=== PATIENT | female | born 1945 | race Caucasian/White ===

== ENCOUNTER → 2017-12-02 14:15 | Outpatient (CLI) | payer MEDICARE, OTHER, SELFPAY | PROVIDERS: PCP Nurse Practitioner; Visit Provider Nurse Practitioner | DX: R30.0 Dysuria (principal) | CPT/HCPCS: 87077; 87086; 87186 ==

== ENCOUNTER 2017-12-24 08:44 | Outpatient (REF) | payer MEDICARE, OTHER, SELFPAY ==
[2017-12-24 09:19] LABS: Abs Immature Grans 0.01 k/cumm (0.0-0.09); Absolute Basophil Count 0.05 k/cumm (0.0-0.2); Absolute Eosinophil Count 0.32 k/cumm (0.0-0.7); Absolute Lymphocyte Count 2.62 k/cumm (1.2-3.4); Absolute Monocyte Count 0.49 k/cumm (0.11-0.7); Absolute Neutrophil Count 2.73 k/cumm (1.2-6.7); Basophils % 0.8; Eosinophils % 5.1; HCT 44.4 % (36.0-46.0); HGB 15.1 g/dL (12.0-15.5); Immature Grans % 0.2; Lymphocytes % 42.1; Mean Corpuscular Hemoglobin 30.9 pg (27.0-33.0); Mean Platelet Volume 10.4 fL (8.0-11.0); Monocytes % 7.9; Neutrophils % 43.9; Platelet Count 323 x1000/uL (130-400); RBC 4.88 m/cumm (4.00-5.20); RBC Distribution Width 12.2 % (11.7-14.6); White Blood Cell Count 6.22 k/cumm (4.4-10.8)
[2017-12-24 10:51] LABS: ALT 24 U/L (12-78); AST 22 U/L (15-37); Albumin 3.9 g/dL (3.4-5.0); Alkaline Phosphatase 88 U/L (46-116); Anion Gap 7.2 mmol/L (3-11); BUN 11 mg/dL (7-18); Bilirubin, Total 0.4 mg/dL (0.2-1.0); CO2 31.8 mmol/L (21.0-32.0); Calcium 9.4 mg/dL (8.5-10.1); Chloride 101 mmol/L (98-107); Cholesterol 155 mg/dL (50-200); Glucose 98 mg/dL (70-100); HDL Cholesterol 64 mg/dL (40-60); LDL CHOLESTEROL 84 mg/dL (<100); Potassium 4.6 mmol/L (3.5-5.1); Sodium 140 mmol/L (136-145); TSH (W/Ref FT4) 0.06 uIU/mL (0.358-3.74); Total Protein 7.5 g/dL (6.4-8.2); Triglyceride 60 mg/dL (30-150)
[2017-12-24 11:12] LABS: FREE T4 1.28 ng/dL (0.76-1.46)
== END 2017-12-24 09:04 ==
LOC: LBN 08:44
PROVIDERS: PCP Nurse Practitioner; Visit Provider Nurse Practitioner
DX: R30.0 Dysuria (principal); I10 Essential (primary) hypertension; E78.5 Hyperlipidemia, unspecified; E03.9 Hypothyroidism, unspecified
CPT/HCPCS: 80053; 80061; 83721; 87077; 84439; 84443; 85025; 87086; 87186

== ENCOUNTER 2018-01-06 12:23 | Outpatient (REF) | payer MEDICARE, OTHER, SELFPAY | END 2018-01-06 12:43 | LOC: LBN 12:23 | PROVIDERS: PCP Nurse Practitioner; Visit Provider Nurse Practitioner Adult Health | DX: N39.0 Urinary tract infection, site not specified (principal); Z22.322 Carrier or suspected carrier of Methicillin resistant Staphylococcus aureus | CPT/HCPCS: 87077; 87086 ==

== ENCOUNTER 2018-01-23 15:02 | Outpatient (REF) | payer MEDICARE, OTHER, SELFPAY | END 2018-01-23 15:22 | LOC: LBN 15:02 | PROVIDERS: PCP Nurse Practitioner; Visit Provider Nurse Practitioner Family | DX: N39.0 Urinary tract infection, site not specified (principal) | CPT/HCPCS: 87086 ==

== ENCOUNTER 2018-02-24 10:01 | Outpatient (REF) | payer MEDICARE, OTHER, SELFPAY | END 2018-02-24 10:21 | LOC: LBN 10:01 | PROVIDERS: PCP Nurse Practitioner; Visit Provider Nurse Practitioner Adult Health | DX: R35.0 Frequency of micturition (principal); R30.0 Dysuria | CPT/HCPCS: 87077; 87086; 87186 ==

== ENCOUNTER 2018-08-28 09:28 | Outpatient (CLI) | payer MEDICARE, OTHER, SELFPAY ==
[2018-08-28 10:42] LABS: Glucose 99 mg/dL (70-100); TSH (W/Ref FT4) 0.13 uIU/mL (0.358-3.74)
== END 2018-08-28 09:48 ==
PROVIDERS: PCP Nurse Practitioner Adult Health; Visit Provider Nurse Practitioner Adult Health
DX: E03.9 Hypothyroidism, unspecified (principal); I10 Essential (primary) hypertension; R35.0 Frequency of micturition
CPT/HCPCS: 36415; 82947; 84439; 84443

== ENCOUNTER 2018-09-20 19:08 | Emergency (ER) | payer MEDICARE, OTHER, SELFPAY ==
[2018-09-20 19:15] VITALS: BP 160/96; PULSE 100; RESP 16; TEMP 36.9; O2SAT 95
--- NOTE | 2018-09-20 19:40 | DI.CT_ITS ---
SYMPTOM/DIAGNOSIS: LLQ PAIN, NAUSEA, DIARRHEA, H/O DIVERTICULITIS ABDOMEN AND PELVIC CT: CT examination of the abdomen and pelvis was performed with a bolus infusion of 100 cc's of Omnipaque 350. Images obtained through the lung bases are unremarkable. Liver and spleen appear normal. Gallbladder has been surgically removed. Common bile duct is mildly distended at about 14 mm. This is an indeterminate finding in this age group post cholecystectomy. If clinically indicated, additional evaluation with MRCP could be considered. Pancreas is unremarkable. Abdominal aorta is of normal diameter and no major vascular abnormality is seen. No significant abdominal wall hernia is seen. No significant abdominal or pelvic adenopathy is seen. Adrenals and kidneys are unremarkable except for presumed multiple small bilateral renal cysts. Appendix is normal. There is an area of wall thickening of the junction of the descending and sigmoid colon with marked pericolonic fat edema. No gross abscess identified although intramural abscess is not excluded. No evidence of perforation. The findings are consistent with diverticulitis. Other etiologies including perforated carcinoma not absolutely excluded. CONCLUSION: Findings consistent with severe diverticulitis of junction of descending colon and sigmoid colon. Intramural abscess not excluded. No gross perforation or extramural abscess seen. Colonoscopic follow up recommended to exclude neoplastic disease.
[2018-09-20 19:58] LABS: Lactate-non-spesis 0.7 mmol/l (0.6-1.4)
[2018-09-20 20:04] LABS: Abs Immature Grans 0.02 k/cumm (0.0-0.09); Absolute Basophil Count 0.01 k/cumm (0.0-0.2); Absolute Eosinophil Count 0.17 k/cumm (0.0-0.7); Absolute Lymphocyte Count 2.33 k/cumm (1.2-3.4); Absolute Monocyte Count 0.95 k/cumm (0.11-0.7); Basophils % 0.1; Eosinophils % 1.5; HCT 40.9 % (36.0-46.0); HGB 14.3 g/dL (12.0-15.5); Immature Grans % 0.2; Lymphocytes % 20.5; Mean Corpuscular Hemoglobin 31.8 pg (27.0-33.0); Mean Corpuscular Volume 90.9 fL (80-95); Mean Platelet Volume 10.4 fL (8.0-11.0); Monocytes % 8.3; Neutrophils % 69.4; Platelet Count 326 x1000/uL (130-400); White Blood Cell Count 11.39 k/cumm (4.4-10.8)
[2018-09-20 20:20] LABS: ALT 21 U/L (12-78); AST 17 U/L (15-37); Albumin 3.7 g/dL (3.4-5.0); Alkaline Phosphatase 82 U/L (46-116); Anion Gap 11.1 mmol/L (3-11); BUN 7 mg/dL (7-18); Bilirubin, Total 0.5 mg/dL (0.2-1.0); CO2 26.9 mmol/L (21.0-32.0); CREATININE 0.56 mg/dL (0.55-1.02); Calcium 9.2 mg/dL (8.5-10.1); Chloride 100 mmol/L (98-107); Glucose 102 mg/dL (70-100); Magnesium 1.6 mg/dL (1.8-2.4); Sodium 138 mmol/L (136-145); Total Protein 7.8 g/dL (6.4-8.2)
--- NOTE | 2018-09-20 20:29 | W.ED.GENAD ---
Discharge Plan Disposition Patient Disposition: HOME Discharge Details Chief Complaint: Abd Prob Clinical Impression: Diverticulitis, Hypokalemia, Hypomagnesuria Primary Care Provider: Natalya Rodrigez ED Provider: Demetrius Matute Home Meds and New Rx's Prescriptions: New amoxicillin-pot clavulanate [Augmentin] 875-125 mg tablet 1 tab PO BID 7 Days Qty: 14 RF: 0 potassium chloride 20 mEq tablet extended release 20 meq PO DAILY Qty: 30 RF: 0 Continued benazepril 10 mg tablet 10 mg PO DAILY Qty: 90 RF: 3 aspirin [Aspir-81] 81 MG tablet,delayed release (DR/EC) 81 mg PO DAILY RF: 0 multivitamin [Multi-Day] 1 EACH tablet 1 ea PO DAILY RF: 0 cholecalciferol (vitamin D3) [Vitamin D3] 2,000 UNIT capsule 2,000 unit PO DAILY RF: 0 glucosamine sulfate 2KCl 1,000 MG tablet 1,000 mg PO DAILY RF: 0 omeprazole 20 MG capsule,delayed release(DR/EC) 20 mg PO DAILY Qty: 90 RF: 3 simvastatin 20 MG tablet 20 mg PO DAILY Qty: 90 RF: 3 benazepril 20 mg tablet 20 mg PO DAILY Qty: 90 RF: 3 chlorthalidone 25 mg tablet 25 mg PO DAILY Qty: 90 RF: 3 levothyroxine 150 mcg tablet 150 mcg PO DAILY Qty: 90 RF: 3 Discharge Instructions Instructions: Diverticulitis (ED), Hypokalemia (ED) Additional Instructions: Your work-up in the emergency department today has found you to have acute diverticulitis of the lower colon. Your blood work demonstrated low levels of potassium and magnesium. You were given supplementation for both of these in the emergency department. I have started you on antibiotics for your diverticulitis along with potassium supplementation. If you develop severe pain, vomiting, fevers despite antibiotic use you must return to the emergency department for repeat evaluation. Follow-up with your primary care provider regarding your low potassium as this may be related to your diuretic use. Referrals: Natalya Rodrigez, REHABILITATION MANAGER [Primary Care Provider] - 1 week Medical Decision Making This is a nontoxic-appearing 73-year-old female with left lower quadrant pain consistent with previous diverticulitis flares. Her CT today confirms acute diverticulitis without evidence of abscess or perforation. She has a slightly elevated white count however normal lactate. Her chemistry panel did demonstrate a hypokalemia at 2.9 along with a slight hypo-mag at 1.6. She does take chlorthalidone; This along with her recent diarrhea is most likely is what has contributed to her electrolyte imbalances. Potassium 40 mEq p.o. along with 10 mEq IV given. Magnesium 400 mg p.o. given. No EKG changes associated with her hypokalemia. Will redraw chemistries after supplementation. No indication for hospitalization at this time. Will proceed with Augmentin for outpatient antibiotic therapy. Lab Data Most recent lab results Calcium 9.2 mg/dL (8.5-10.1) 09/20/18 19:55 Magnesium 1.6 mg/dL (1.8-2.4) L 09/20/18 19:55 ECG Data Interpretation: Normal sinus rhythm. Negative for STEMI. QTc measuring at 475. HPI General Date/Time Provider Initiated Documentation: 09/20/18 19:17. HPI Narrative: Patient is a 73-year-old female with a significant past medical history of diverticulitis, hypertension, hypothyroidism who presents to the emergency department with left lower quadrant abdominal pain and diarrhea x24 hours. She reports chills and sweats. No fever reported. She denies any urinary symptoms. No bloody stools. Her last bout of diverticulitis was over a year ago. Related Data Home Medications Medication Instructions Recorded Confirmed aspirin [Aspir-81] 81 mg PO DAILY tab-cap 07/03/12 09/20/18 multivitamin [Multi-Day] 1 ea PO DAILY 07/09/14 09/20/18 cholecalciferol (vitamin D3) 2,000 unit PO DAILY 07/31/16 09/20/18 [Vitamin D3] glucosamine sulfate 2KCl 1,000 mg PO DAILY 10/07/17 09/20/18 omeprazole 20 mg PO DAILY #90 tab-cap 11/07/17 09/20/18 simvastatin 20 mg PO DAILY #90 tab-cap 11/18/17 09/20/18 benazepril 20 mg tablet 20 mg PO DAILY #90 tab 12/26/17 09/20/18 benazepril 10 mg tablet 10 mg PO DAILY #90 tab 01/06/18 09/20/18 chlorthalidone 25 mg tablet 25 mg PO DAILY #90 tab-cap 02/10/18 09/20/18 levothyroxine 150 mcg tablet 150 mcg PO DAILY #90 tab-cap 08/28/18 09/20/18 amoxicillin-pot clavulanate 1 tab PO BID 7 Days #14 tab 09/20/18 [Augmentin] potassium chloride 20 meq PO DAILY #30 tab 09/20/18 Previous Rx's Medication Instructions Recorded omeprazole 20 mg PO DAILY #90 tab-cap 11/07/17 simvastatin 20 mg PO DAILY #90 tab-cap 11/18/17 benazepril 20 mg tablet 20 mg PO DAILY #90 tab 12/26/17 benazepril 10 mg tablet 10 mg PO DAILY #90 tab 01/06/18 chlorthalidone 25 mg tablet 25 mg PO DAILY #90 tab-cap 02/10/18 levothyroxine 150 mcg tablet 150 mcg PO DAILY #90 tab-cap 08/28/18 amoxicillin-pot clavulanate 1 tab PO BID 7 Days #14 tab 09/20/18 [Augmentin] potassium chloride 20 meq PO DAILY #30 tab 09/20/18 Allergies Allergy/AdvReac Type Severity Reaction Status Date / Time No Known Allergies Allergy Verified 09/20/18 21:56 General Stated Complaint: Abd Prob MERARY: 3 Review of Systems Constitutional Denies anorexia, Denies body ache(s), Reports chills, Denies fatigue, Denies fever(s), Denies night sweats and Denies weakness ENT Denies sore throat Cardiovascular Denies chest pain, Denies edema, Denies palpitations and Denies dyspnea Respiratory Denies cough, Denies dyspnea and Denies wheezing Gastrointestinal Reports abdominal pain, Denies melena, Reports change in bowel habits, Denies constipation, Reports diarrhea, Reports loose stools, Reports nausea and Denies vomiting Genitourinary Denies hematuria, Denies dysuria and Denies flank pain Musculoskeletal Denies myalgias, Denies deformity and Denies numbness Integumentary/Breasts Denies rash Neurologic Denies numbness and Denies weakness Endocrine Denies fatigue and Denies palpitations Hematologic/Lymphatic Denies easy bleeding and Denies easy bruising Allergic/Immunologic Denies wheezing [facility] Medical History Asthma (Inactive 06/10/13) Asthma Essential hypertension Hearing loss Hypothyroidism Surgical History History of hysterectomy (Resolved) Prolapse of bladder (Resolved) Colonoscopy - IV Sedation (01/09/13) Colonoscopy - MAC (08/30/17) Family History Mother No problems noted. Father Heart disease Social History Smoking/Tobacco Use Status: Former Tobacco Use Drug use: Never Exam Const General: cooperative and healthy appearing Nutritional Appearance: average body habitus Orientation: alert and awake HENMT Head: normal to inspection Ears: hearing grossly normal bilaterally General nose exam: external nose normal Face and sinus: normal facial exam Eyes General: appearance normal, both eyes and all related structures Neck Neck: normal visual inspection, full ROM and no lymphadenopathy Chest Chest: normal inspection of the chest Breast inspection: normal inspection of the breasts Resp Effort & Inspection: normal respiratory effort and able to speak in complete sentences Auscultation: clear to auscultation bilaterally and abnormal I/E ratio Cardio Jugular venous pressure: no JVD Palpation: normal PMI Rate: regular rate Rhythm: regular rhythm Heart Sounds: S1 normal and S2 normal Pulses: normal peripheral pulses GI Inspection: normal to inspection Palpation: soft, no guarding and tender in the LLQ Back/Spine/Pelvis Back: no CVA tenderness Thoracic/Lumbar Spine: thoracic and lumbar spine normal to inspection Skin General skin exam: no rashes or lesions noted Neuro General: alert and awake Extrem General: normal to inspection Course Vital Signs Temperature 36.9 C 09/20/18 19:15 Pulse 100 H 09/20/18 19:15 Respiratory Rate 16 09/20/18 19:15 Blood Pressure 160/96 H 09/20/18 19:15 Pulse Oximetry 95 09/20/18 19:15 Temperature 36.9 C 09/20/18 19:15 Temperature Source Temporal Artery Scan 09/20/18 19:15 Pulse 100 H 09/20/18 19:15 Respiratory Rate 16 09/20/18 19:15 Blood Pressure 160/96 H 09/20/18 19:15 Blood Pressure Position Supine 09/20/18 19:15 Pulse Oximetry 95 09/20/18 19:15 Oxygen Delivery Method Room Air 09/20/18 19:15 Oxygen Flow Rate 0 09/20/18 19:15 Pain Level 7 09/20/18 19:31 Lab/Test Results Lab/Test Results: Laboratory Tests Range/Units 09/20/18 09/20/18 19:55 19:55 WBC (4.4-10.8) k/cumm 11.39 H RBC (4.00-5.20) m/cumm 4.50 Hgb (12.0-15.5) g/dL 14.3 Hct (36.0-46.0) % 40.9 MCV (80-95) fL 90.9 MCH (27.0-33.0) pg 31.8 MCHC (32.0-36.0) g/dL 35.0 RDW (11.7-14.6) % 12.0 Plt Count (130-400) x1000/uL 326 MPV (8.0-11.0) fL 10.4 Immature Gran % 0.2 Neutrophils % 69.4 Lymphocytes % 20.5 Monocytes % 8.3 Eosinophils % 1.5 Basophils % 0.1 Absolute Neutrophils (1.2-6.7) k/cumm 7.90 H Absolute Lymphocytes (1.2-3.4) k/cumm 2.33 Absolute Monocytes (0.11-0.7) k/cumm 0.95 H Absolute Eosinophils (0.0-0.7) k/cumm 0.17 Absolute Basophils (0.0-0.2) k/cumm 0.01 Lactate (0.6-1.4) mmol/l 0.7
[2018-09-20 20:42] LABS: Potassium 2.9 mmol/L (3.5-5.1); Troponin I < 0.02 ng/mL (0.00-0.06)
[2018-09-20] MEDS: Magnesium Oxide 400 MG TAB PO (20:59)
[2018-09-20] MEDS: Potassium Chloride 20 MEQ TABCR 40 MEQ PO (20:59)
[2018-09-20] MEDS: POTASSIUM CHLORIDE 10 MEQ/100 ML BAG 100 MEQ IVPB (20:59)
[2018-09-20] MEDS: Normal Saline 500 ML 1000 ML IV (21:16)
[2018-09-20] MEDS: Omnipaque 350 MG/ML 100 ML BTL IJ (21:21)
[2018-09-20 21:29] VITALS: BP 180/72; PULSE 90; RESP 16; TEMP 36.7; O2SAT 95
--- NOTE | 2018-09-20 22:00 | DI.VRAD_ITS ---
EXAM: CT Abdomen and Pelvis With Contrast EXAM DATE/TIME: 09/20/2018 7:42 PM CLINICAL HISTORY: 73 years old, female; Signs and symptoms; Patient HX: HX of diverticulitis, llq pain, nausea, diarrhea TECHNIQUE: Imaging protocol: Axial computed tomography images of the abdomen and pelvis with intravenous contrast. Coronal and sagittal reformatted images were created and reviewed. COMPARISON: No relevant prior studies available. FINDINGS: Mediastinum: Small hiatal hernia. ABDOMEN: Liver: No mass. Gallbladder and bile ducts: Status post cholecystectomy. Prominent common bile duct. Pancreas: No ductal dilation. Spleen: No splenomegaly. Adrenals: No mass. Kidneys and ureters: Probable tiny 3 mm cyst in the right kidney. Probable 8 mm cyst in the left kidney. Stomach and bowel: Diverticula and wall thickening involving a segment of the sigmoid colon, with surrounding inflammation, compatible with moderate acute diverticulitis. No definite evidence of abscess. Appendix: No evidence of appendicitis. PELVIS: Bladder: Punctate gas is seen in the urinary bladder. Reproductive: Status post hysterectomy. ABDOMEN and PELVIS: Intraperitoneal space: Small amount of free fluid within the pelvis is likely reactive. Bones/joints: Bony structures show scattered degenerative disease of the visualized spine. Soft tissues: Unremarkable. Vasculature: Atherosclerotic disease. Lymph nodes: No enlarged lymph nodes. IMPRESSION: 1. Diverticula and wall thickening involving a segment of the sigmoid colon, with surrounding inflammation, compatible with moderate acute diverticulitis. No definite evidence of abscess. 2. Atherosclerotic disease. 3. Small hiatal hernia. 4. Small amount of free fluid within the pelvis is likely reactive. Dictated and Authenticated by: Pasha Cartwright MD. Ordering:ZABRINA Romo MD
[2018-09-20 22:29] LABS: Potassium 3.3 mmol/L (3.5-5.1)
[2018-09-20] MEDS: Amoxicillin 875/Clav. 125 TAB PO (23:04)
== END 2018-09-20 22:39 | disposition home or self-care (01) ==
PROVIDERS: Emergency Provider Physician Assistant; PCP Nurse Practitioner Adult Health
DX: K57.30 Diverticulosis of large intestine without perforation or abscess without bleeding (principal); E87.6 Hypokalemia; E83.42 Hypomagnesemia
CPT/HCPCS: 36415; 80053; 93005; 96361; 96365; 99285; 74177; 83605; 83735; 84132; 84484; 85025; 93010; J3480; J3490

== ENCOUNTER 2018-10-03 11:14 | Outpatient (CLI) | payer MEDICARE, OTHER, SELFPAY ==
[2018-10-03 13:05] LABS: Magnesium 1.5 mg/dL (1.8-2.4); Potassium 5.2 mmol/L (3.5-5.1)
== END 2018-10-03 11:34 ==
PROVIDERS: PCP Nurse Practitioner Adult Health; Visit Provider Nurse Practitioner
DX: E83.42 Hypomagnesemia (principal); E87.6 Hypokalemia
CPT/HCPCS: 36415; 83735; 84132

== ENCOUNTER 2018-10-17 15:43 | Outpatient (REF) | payer MEDICARE, OTHER, SELFPAY | END 2018-10-17 16:03 | LOC: LBN 15:43 | PROVIDERS: PCP Nurse Practitioner Adult Health; Visit Provider Nurse Practitioner Adult Health | DX: R30.0 Dysuria (principal) | CPT/HCPCS: 87086 ==

== ENCOUNTER 2018-10-22 11:38 | Outpatient (CLI) | payer MEDICARE, OTHER, SELFPAY ==
[2018-10-22 13:00] LABS: Magnesium 1.5 mg/dL (1.8-2.4); Potassium 4.3 mmol/L (3.5-5.1)
== END 2018-10-22 11:58 ==
PROVIDERS: Nurse Practitioner; PCP Nurse Practitioner Adult Health; Visit Provider Nurse Practitioner Adult Health
DX: E83.42 Hypomagnesemia (principal); E87.6 Hypokalemia
CPT/HCPCS: 83735; 84132

== ENCOUNTER 2018-12-19 15:11 | Outpatient (REF) | payer MEDICARE, OTHER, SELFPAY ==
[2018-12-19 18:59] LABS: Bilirubin Negative (Negative); Blood Trace-intact (Negative); Clarity Cloudy (Clear); Glucose Negative (Negative); Ketones Negative (Negative); Leukocyte Esterase Moderate (Negative); Nitrite Positive (Negative); Specific Gravity 1.015 (1.005-1.025); Urobilinogen 0.2 EU/dL (Up TO 0.2); pH 7.5 (5-8)
[2018-12-19 19:12] LABS: Bacteria Packed HPF (Negative); C & S Indicated? Yes; Casts Negative LPF (Negative); Crystals Negative HPF (Negative); Epithelial Cells Negative HPF (Negative); Mucus Negative (Negative); Other Cells Mod Transitional (Negative); WBC >50 HPF (0-5)
== END 2018-12-19 15:31 ==
LOC: LBN 15:11
PROVIDERS: PCP Nurse Practitioner Adult Health; Visit Provider Nurse Practitioner Adult Health
DX: R30.0 Dysuria (principal)
CPT/HCPCS: 87077; 81003; 81015; 87086; 87186

== ENCOUNTER 2019-06-22 13:24 | Outpatient (CLI) | payer MEDICARE, OTHER, SELFPAY ==
--- NOTE | 2019-06-22 11:30 | DI.RAD_ITS ---
EXAM: XR CHEST 2V PA LATERAL INDICATION: r/o acute process R05 COUGH, R50.9 FEVER, R09.89. COMPARISON: No exams were available for comparison TECHNIQUE: 2D digital imaging was performed. FINDINGS: Heart size is normal. The aorta is normal in diameter and mildly tortuous. The lungs appear clear. No infiltrate, effusion or pulmonary edema is seen. There are no thoracic compression fractures. IMPRESSION: No acute abnormality. DATA REPOSITORY: RADIATION DOSE DELIVERED:
== END 2019-06-22 13:44 ==
PROVIDERS: PCP Nurse Practitioner Adult Health; Visit Provider Nurse Practitioner Adult Health
DX: R05 Cough (principal); R50.9 Fever, unspecified; R09.89 Other specified symptoms and signs involving the circulatory and respiratory systems
CPT/HCPCS: 71046

== ENCOUNTER 2019-11-26 02:22 | Outpatient (CLI) | payer MEDICARE, OTHER, SELFPAY ==
[2019-11-26 11:03] LABS: Anion Gap 8.3 mmol/L (3-11); BUN 11 mg/dL (7-18); CO2 30.7 mmol/L (21.0-32.0); CREATININE 0.62 mg/dL (0.55-1.02); Calcium 9.5 mg/dL (8.5-10.1); Chloride 102 mmol/L (98-107); Glucose 104 mg/dL (74-106); Magnesium 1.7 mg/dL (1.8-2.4); Sodium 141 mmol/L (136-145); TSH (W/Ref FT4) 0.04 uIU/mL (0.36-3.74)
[2019-11-26 11:19] LABS: FREE T4 1.47 ng/dL (0.76-1.46)
== END 2019-11-26 02:42 ==
PROVIDERS: PCP Nurse Practitioner Adult Health; Visit Provider Nurse Practitioner Adult Health
DX: E03.9 Hypothyroidism, unspecified (principal); I10 Essential (primary) hypertension; E83.42 Hypomagnesemia
CPT/HCPCS: 36415; 80048; 83735; 84439; 84443

== ENCOUNTER 2020-02-01 01:26 | Outpatient (CLI) | payer MEDICARE, OTHER, SELFPAY ==
[2020-02-01 14:37] LABS: Anion Gap 8.4 mmol/L (3-11); BUN 13 mg/dL (7-18); CO2 31.6 mmol/L (21.0-32.0); CREATININE 0.74 mg/dL (0.55-1.02); Calcium 9.6 mg/dL (8.5-10.1); Calculated LDL 68 mg/dL (<100); Chloride 98 mmol/L (98-107); Cholesterol 143 mg/dL (<200); Glucose 97 mg/dL (74-106); HDL Cholesterol 57 mg/dL (40-60); Magnesium 1.7 mg/dL (1.8-2.4); Potassium 4.8 mmol/L (3.5-5.1); Sodium 138 mmol/L (136-145); TSH (W/Ref FT4) 0.13 uIU/mL (0.36-3.74); Triglyceride 91 mg/dL (<150)
[2020-02-01 15:16] LABS: FREE T4 1.54 ng/dL (0.76-1.46)
== END 2020-02-01 01:46 ==
PROVIDERS: PCP Nurse Practitioner Adult Health; Visit Provider Nurse Practitioner Adult Health
DX: I10 Essential (primary) hypertension (principal); E78.5 Hyperlipidemia, unspecified; E03.9 Hypothyroidism, unspecified; E83.42 Hypomagnesemia; R94.6 Abnormal results of thyroid function studies
CPT/HCPCS: 36415; 80048; 80061; 83735; 84439; 84443

== ENCOUNTER 2020-08-15 04:15 | Outpatient (CLI) | payer MEDICARE, OTHER, SELFPAY ==
[2020-08-15 12:08] LABS: TSH (W/Ref FT4) 0.18 uIU/mL (0.36-3.74)
[2020-08-15 12:25] LABS: FREE T4 1.31 ng/dL (0.76-1.46)
== END 2020-08-15 04:16 | disposition home or self-care (01) ==
LOC: LBO 04:15
PROVIDERS: PCP Nurse Practitioner Adult Health; Visit Provider Nurse Practitioner Adult Health
DX: E03.9 Hypothyroidism, unspecified (principal)
CPT/HCPCS: 36415; 84439; 84443

== ENCOUNTER 2020-08-22 01:13 | Outpatient (CLI) | payer MEDICARE, OTHER, SELFPAY ==
--- NOTE | 2020-08-22 07:18 | DI.MAMMO_ITS ---
Exam(s) MAMMO SCREENING EXAM: MAMMO SCREENING CLINICAL HISTORY: screening,Z12.39 TECHNIQUE: Bilateral full field digital CC and MLO mammographic images were obtained with 3D tomosyn thesis and utilizing computer aided detection (CAD). COMPARISON: Available for comparison. FINDINGS: Masses/Architectural Distortion: None seen. Microcalcifications: No suspicious pleomorphic-type are seen. Skin Thickening/Nipple Retraction: None. IMPRESSION: 1. No significant interval change with no specific features of malignancy noted. 2. Unless there is more urgent need, screening mammography is recommended, as per [employer] guidelines. BI-RADS Category 1 - Negative Breast Density - Category B - Scattered areas of fibroglandular density Breast density category C or D implies that the patient has dense breast tissue. Dense breast tissue is very common and is not abnormal but dense breast tissue can make it harder to find cancer on a ma mmogram. Also, dense breast tissue may increase their breast cancer risk. This information about the result of the mammogram report was provided to the patient to raise their awareness. Use this report when you speak with the patient about their risks for breast cancer, which includes their family hist ory. At that time, you may recommend for more screening tests (Ultrasound or MRI) as they might be us eful based on their risk. A negative radiographic report should not delay biopsy if a dominant or clinically suspicious mass is present. Up to ten percent of cancers are not identified on mammography. A negative report may reinforce clinical impression. Adenosis and dense breasts may obscure an underlying neoplasm. False positive reports average 6 to 10%. Patient will receive a letter notifying them of these results.
== END 2020-08-22 01:33 ==
PROVIDERS: PCP Nurse Practitioner Adult Health; Visit Provider Nurse Practitioner Adult Health
DX: Z12.31 Encounter for screening mammogram for malignant neoplasm of breast (principal)
CPT/HCPCS: 77063; 77067

== ENCOUNTER 2021-02-17 03:37 | Outpatient (CLI) | payer MEDICARE, OTHER, SELFPAY ==
[2021-02-17 10:20] LABS: Hemoglobin A1C 5.7 % (<5.7)
[2021-02-17 11:12] LABS: Anion Gap 5.5 mmol/L (3-11); BUN 13 mg/dL (7-18); CO2 31.5 mmol/L (21.0-32.0); CREATININE 0.7 mg/dL (0.55-1.02); Calculated LDL 83 mg/dL (<100); Chloride 99 mmol/L (98-107); Cholesterol 152 mg/dL (<200); Glucose 112 mg/dL (74-106); HDL Cholesterol 59 mg/dL (40-60); Magnesium 1.7 mg/dL (1.8-2.4); Potassium 4.6 mmol/L (3.5-5.1); Sodium 136 mmol/L (136-145); TSH (W/Ref FT4) 0.41 uIU/mL (0.36-3.74); Triglyceride 54 mg/dL (<150)
== END 2021-02-17 03:38 | disposition home or self-care (01) ==
LOC: LBO 03:37
PROVIDERS: PCP Nurse Practitioner Adult Health; Visit Provider Nurse Practitioner Adult Health
DX: E03.9 Hypothyroidism, unspecified; E78.5 Hyperlipidemia, unspecified; I10 Essential (primary) hypertension; R79.89 Other specified abnormal findings of blood chemistry; E83.42 Hypomagnesemia
CPT/HCPCS: 36415; 80048; 80061; 83036; 83735; 84443

== ENCOUNTER 2021-04-25 15:11 | Outpatient (REF) | payer MEDICARE, OTHER, SELFPAY | END 2021-04-25 15:12 | disposition home or self-care (01) | LOC: LBN 15:11 | PROVIDERS: PCP Nurse Practitioner Adult Health; Visit Provider Nurse Practitioner | DX: R30.0 Dysuria (principal) | CPT/HCPCS: 87077; 87086; 87186 ==

== ENCOUNTER 2021-07-25 04:14 | Outpatient (CLI) | payer MEDICARE, OTHER, SELFPAY ==
[2021-07-25 12:30] LABS: Source Nasal/Nares
[2021-07-25 23:08] LABS: COVID-19 PCR Negative (Negative)
== END 2021-07-25 04:15 | disposition home or self-care (01) ==
LOC: LBO 04:14
PROVIDERS: PCP Nurse Practitioner Adult Health; Visit Provider Otolaryngology
DX: Z20.822 Contact with and (suspected) exposure to COVID-19 (principal)
CPT/HCPCS: 87635; U0005

== ENCOUNTER 2021-08-16 15:35 | Outpatient (REF) | payer MEDICARE, OTHER, SELFPAY | END 2021-08-16 15:36 | disposition home or self-care (01) | LOC: LBN 15:35 | PROVIDERS: PCP Nurse Practitioner Adult Health; Visit Provider Nurse Practitioner Adult Health | DX: R30.0 Dysuria (principal) | CPT/HCPCS: 87086 ==

== ENCOUNTER 2021-12-08 12:44 | Outpatient (REF) | payer MEDICARE, OTHER, SELFPAY | END 2021-12-08 12:45 | disposition home or self-care (01) | LOC: LBN 12:44 | PROVIDERS: PCP Nurse Practitioner Adult Health; Visit Provider Nurse Practitioner Adult Health | DX: R30.0 Dysuria (principal) | CPT/HCPCS: 87077; 87086; 87186 ==

== ENCOUNTER 2022-02-07 02:38 | Outpatient (CLI) | payer MEDICARE, OTHER, SELFPAY ==
[2022-02-07 10:09] LABS: Anion Gap 7.6 mmol/L (3-11); BUN 20 mg/dL (7-18); CO2 30.4 mmol/L (21.0-32.0); CREATININE 0.6 mg/dL (0.55-1.02); Calcium 9.3 mg/dL (8.5-10.1); Calculated LDL 79 mg/dL (<100); Chloride 101 mmol/L (98-107); Cholesterol 153 mg/dL (<200); Estimated GFR 91.82 (mL/min/1.73m2); Glucose 96 mg/dL (74-106); HDL Cholesterol 61 mg/dL (40-60); Magnesium 1.6 mg/dL (1.8-2.4); Potassium 3.7 mmol/L (3.5-5.1); Sodium 139 mmol/L (136-145); TSH (W/Ref FT4) 0.07 uIU/mL (0.36-3.74); Triglyceride 68 mg/dL (<150)
[2022-02-07 10:21] LABS: Hemoglobin A1C 5.5 % (<5.7)
[2022-02-07 10:47] LABS: FREE T4 1.38 ng/dL (0.76-1.46)
== END 2022-02-07 02:39 | disposition home or self-care (01) ==
LOC: LBO 02:38
PROVIDERS: PCP Nurse Practitioner Adult Health; Visit Provider Nurse Practitioner Adult Health
DX: E03.9 Hypothyroidism, unspecified (principal); E78.5 Hyperlipidemia, unspecified; E83.42 Hypomagnesemia; I10 Essential (primary) hypertension; R73.03 Prediabetes
CPT/HCPCS: 36415; 80048; 80061; 83036; 83735; 84439; 84443

== ENCOUNTER 2022-10-04 00:43 | Outpatient (CLI) | payer MEDICARE, OTHER, SELFPAY ==
--- NOTE | 2022-10-04 08:30 | DI.RAD_ITS ---
Exam(s) XR SHOULDER LT COMPLETE 2+V EXAM: XR SHOULDER LT COMPLETE 2+V CLINICAL HISTORY: evaluate joint space and r/o bony path M25.512 PAIN LEFT SHOULDER. TECHNIQUE: 2D digital imaging was performed. COMPARISON: No exams were available for comparison FINDINGS: Five views No evidence of acute fracture nor dislocation or abnormal soft tissue calcifications. The subacromia l space is not diminished. There are no obvious degenerative changes in the glenohumeral joint. Mod erate degenerative changes noted in the AC joint. No osseous lesions. Bone density normal. Clavicl e unremarkable. IMPRESSION: No significant osseous findings in the shoulder. DATA REPOSITORY: RADIATION DOSE DELIVERED:
== END 2022-10-04 01:03 ==
LOC: DI 00:43
PROVIDERS: PCP Nurse Practitioner Adult Health; Visit Provider Student in an Organized Health Care Education/Training Program
DX: M25.512 Pain in left shoulder (principal)
CPT/HCPCS: 73030

== ENCOUNTER 2022-10-18 01:31 | Outpatient (CLI) | payer MEDICARE, OTHER, SELFPAY ==
--- NOTE | 2022-10-18 07:15 | DI.DEXA_ITS ---
Exam(s) XR DEXA BONE DENSITY W/WO PADMINI EXAM: XR DEXA BONE DENSITY W/WO PADMINI CLINICAL HISTORY: screening for osteoporosis in postmenopausal woman,z78.0 TECHNIQUE: [employer] densitometer analysis of left hip, lumbar spine and right forearm. La teral survey image of the thoracic and lumbar spine. COMPARISON: No exams were available for comparison FINDINGS: Lateral view of the thoracic and lumbar spine shows no evidence of compression fractures. Bone mineral density measurements of the lumbar spine correspond to a total T-score of -1.9, in the osteopenic range. Bone mineral density measurements of the left hip correspond to a total T-score of 0.2. The femoral neck T-score is -0.5, in the normal range.. The right forearm bone mineral density measurements correspond to a T-score of the distal 3rd of -1.9 , in the osteopenic range. . IMPRESSION: Normal bone mineral density of the left hip. Osteopenia of the lumbar spine and forearm.
--- NOTE | 2022-10-18 08:53 | DI.MAMMO_ITS ---
Exam(s) MAMMO SCREENING EXAM: MAMMO SCREENING CLINICAL HISTORY: screening,z12.39 TECHNIQUE: Mammograms were interpreted according to the usual protocol including computer analysis w [employer] CAD system, tomosynthesis and C-view imaging. COMPARISON: 2013 through 2020 FINDINGS: The breasts are composed of scattered fibroglandular densities, Breast Density category B. No suspicious masses or suspicious microcalcifications are seen. No skin thickening or abnormal axillary lymph nodes are seen. There has been no significant change from prior exams. IMPRESSION: BI-RADS Category 1, Negative mammogram Yearly screening mammography is recommended. Breast Density - Category B, scattered fibroglandular densities. A negative radiographic report should not delay biopsy if a dominant or clinically suspicious mass is present. Up to ten percent of cancers are not identified on mammography. A negative report may reinforce clinical impression. Adenosis and dense breasts may obscure an underlying neoplasm. False positive reports average 6 to 10%. Patient will receive a letter notifying them of these results.
== END 2022-10-18 01:51 ==
LOC: DI 01:31
PROVIDERS: PCP Nurse Practitioner Adult Health; Visit Provider Nurse Practitioner Adult Health
DX: E03.9 Hypothyroidism, unspecified (principal); I10 Essential (primary) hypertension; Z12.31 Encounter for screening mammogram for malignant neoplasm of breast; Z78.0 Asymptomatic menopausal state; M85.88 Other specified disorders of bone density and structure, other site; Z13.820 Encounter for screening for osteoporosis
CPT/HCPCS: 77063; 77067; 77080

== ENCOUNTER 2022-11-24 23:17 | Emergency (ER) | payer MEDICARE, OTHER, SELFPAY ==
[2022-11-24 23:25] VITALS: BP 199/86; PULSE 86; RESP 17; TEMP 36.8; O2SAT 98
--- NOTE | 2022-11-25 00:06 | W.ED.GENAD ---
Discharge Plan Disposition Patient Disposition: Home Discharge Details Clinical Impression: Acute diverticulitis, Bacteriuria Primary Care Provider: Natalya Rodrigez ED Provider: Manohar Mari Home Meds and New Rx's Prescriptions: New amoxicillin-pot clavulanate 875-125 mg tablet 1 tab PO BID Qty: 10 0RF cephalexin 500 mg capsule 250 mg PO QID PRN5 Days Qty: 20 0RF No Action albuterol sulfate [Ventolin HFA] 90 mcg/actuation HFA aerosol inhaler 2 puff IH Q4H PRN (Reason: shortness of breath or wheezing) Qty: 8 0RF Rx Instructions: Please dispense with spacer levothyroxine 150 mcg tablet 150 mcg PO DAILY MDD 150mcg daily Qty: 90 3RF Rx Instructions: 75mcg (0.5 tab) [id number]-, 150mcg (1 tab) M-W-F all other days or as directed diphenhydramine HCl [Benadryl Allergy] 25 mg tablet 25 mg PO QHS PRN (Reason: allergies &/or sleep) [facility] Extra Strength 500-1,985-1,000 mg tablet, effervescent PO PRN Patient Comments: Breakthrough heartburn aspirin [Aspir-81] 81 MG tablet,delayed release (DR/EC) 81 mg PO DAILY multivitamin [Multi-Day] 1 EACH tablet 1 ea PO DAILY magnesium oxide 400 mg capsule 400 mg PO DAILY Qty: 90 3RF potassium chloride 10 mEq capsule, extended release 10 meq PO DAILY Qty: 90 3RF omeprazole 20 mg capsule,delayed release(DR/EC) 20 mg PO DAILY Qty: 90 3RF simvastatin 20 mg tablet 20 mg PO DAILY Qty: 90 3RF Rx Instructions: chlorthalidone 25 mg tablet 25 mg PO DAILY Qty: 90 3RF Rx Instructions: Blood pressure benazepril 40 mg tablet 40 mg PO DAILY Qty: 90 3RF calcium 600 mg Capsule 600 mg PO DAILY Discharge Instructions Instructions: Diverticulitis Diet (ED) Additional Instructions: Please read all of the information that accompanies these instructions. You were seen in the emergency department for your abdominal pain. You are found to have diverticulitis. Your urinalysis showed concern for the possibility of a urinary tract infection. You received 2 antibiotics that you should take as directed. Please schedule an appointment with your primary care provider next week. Please return to the emergency department if cannot eat or drink or if you develop any worsening pain or fevers. For your pain please take medications as follows: 1. Take acetaminophen (Tylenol), 1,000 mg (two 500 mg tabs) every 6 hours Medical Decision Making This is an overall very well-appearing normothermic and not tachycardic 77-year-old female with history of diverticulitis now with recurrent left lower quadrant pain concerning for diverticulitis. No pain out of proportion to suggest necrotizing soft tissue infection. No right lower quadrant tenderness to suggest appendicitis. Patient is not an alcoholic and has no epigastric tenderness to suggest pancreatitis. No right upper quadrant tenderness nor nausea nor vomiting to suggest acute cholecystitis. Patient is not confused to suggest ascending cholangitis. Patient does feel some pressure in her bladder concerning for the possibility of acute cystitis so we will obtain a urinalysis. Vitals notable for hypertension which was possibly related to pain. Patient declines analgesia at this point time. She has no flank pain to suggest ureterolithiasis. I considered ruptured AAA however the patient is not hypotensive nor ill-appearing so my suspicion for ruptured AAA is exceedingly low. Will obtain comprehensive metabolic panel CBC urinalysis and CT abdomen pelvis with IV contrast. 3:35 AM Comprehensive metabolic panel with no VINCE and reassuring LFTs. No anion gap. Not consistent with DKA. CBC notable for leukocytosis but no anemia. No thrombocytopenia. Urinalysis does show positive nitrites concerning for UTI. Microscopy does show few bacteria. CT scan showing concern for epiploic appendagitis versus acute diverticulitis. Given symptoms reminiscent of prior episode of diverticulitis will plan on treating empirically with amoxicillin clavulanic acid. We will also add on cephalexin 250 mg 4 times daily given bladder pressure and bacteriuria concerning for the possibility of acute cystitis. No signs of perforation nor microabscess. I have asked health community relations officer Anna Marie to have the patient seen within the next week by her primary care provider for reassessment. Blood pressure improved slightly in the ED with analgesia. HPI General Date/Time Provider Initiated Documentation: 11/25/22 00:06. HPI Narrative: This is a 77-year-old female with a history of diverticulitis and colonoscopy within the past 5 years now presenting with left lower quadrant pain. Patient reports that her pain began approximately 1 week ago. She attempted to treat her symptoms with a regional economist than usual diet including soup. Her symptoms transiently resolved but recurred 2 days ago. She has not had any fevers. She has never had any surgeries to her abdomen. She denies dysuria but does feel a pressure in her bladder. She had diarrhea 3 days ago. She has not been nauseous nor vomiting. She denies chills. No trauma to abdomen recently. No flank pain. Related Data Home Medications Medication Instructions Recorded Confirmed aspirin 81 mg tablet,delayed 81 mg PO DAILY 07/03/12 11/24/22 release (Aspir-) multivitamin (Multi-Day tablet) 1 ea PO DAILY 07/09/14 11/24/22 magnesium oxide 400 mg PO DAILY #90 caps 10/06/18 11/24/22 aspirin 500 mg-sod bicarb 1,985 tab PO PRN 11/30/19 10/02/22 mg-citric acid 1,000 mg efferv tablet ([place] Extra Strength) diphenhydramine HCl 25 mg tablet 25 mg PO QHS PRN allergies &/or 11/30/19 11/24/22 (Benadryl Allergy) sleep albuterol sulfate 90 mcg/actuation 2 puff inhalation Q4H PRN 06/26/21 11/24/22 aerosol inhaler (Ventolin HFA) shortness of breath or wheezing #8 grams potassium chloride 10 mEq 10 meq PO DAILY #90 caps 01/08/22 11/24/22 capsule,extended release omeprazole 20 mg capsule,delayed 20 mg PO DAILY #90 tab-caps 01/26/22 11/24/22 release simvastatin 20 mg tablet 20 mg PO DAILY #90 tab-caps 02/05/22 11/24/22 chlorthalidone 25 mg tablet 25 mg PO DAILY #90 tabs 02/28/22 11/24/22 benazepril 40 mg tablet 40 mg PO DAILY #90 tabs 05/02/22 11/24/22 levothyroxine 150 mcg tablet 150 mcg PO DAILY #90 tab-caps 08/17/22 11/24/22 calcium 600 mg capsule 600 mg PO DAILY 11/24/22 11/24/22 amoxicillin 875 mg-potassium 1 tab PO BID #10 tabs 11/25/22 clavulanate 125 mg tablet cephalexin 500 mg capsule 250 mg PO QID PRN 5 days #20 caps 11/25/22 Previous Rx's Medication Instructions Recorded magnesium oxide 400 mg PO DAILY #90 caps 10/06/18 albuterol sulfate 90 mcg/actuation 2 puff inhalation Q4H PRN 06/26/21 aerosol inhaler (Ventolin HFA) shortness of breath or wheezing #8 grams potassium chloride 10 mEq 10 meq PO DAILY #90 caps 01/08/22 capsule,extended release omeprazole 20 mg capsule,delayed 20 mg PO DAILY #90 tab-caps 01/26/22 release simvastatin 20 mg tablet 20 mg PO DAILY #90 tab-caps 02/05/22 chlorthalidone 25 mg tablet 25 mg PO DAILY #90 tabs 02/28/22 benazepril 40 mg tablet 40 mg PO DAILY #90 tabs 05/02/22 levothyroxine 150 mcg tablet 150 mcg PO DAILY #90 tab-caps 08/17/22 amoxicillin 875 mg-potassium 1 tab PO BID #10 tabs 11/25/22 clavulanate 125 mg tablet cephalexin 500 mg capsule 250 mg PO QID PRN 5 days #20 caps 11/25/22 Allergies Allergy/AdvReac Type Severity Reaction Status Date / Time No Known Allergies Allergy Verified 10/02/22 12:05 General Stated Complaint: Abd Prob MERARY: 3 PFSH All Active Problems (Updated 11/25/22 @ 03:42 by Manohar Mari MD) Acute diverticulitis (Acute) Bacteriuria (Acute) Osteopenia determined by x-ray (Acute ~09/2022) At risk for osteoporosis (Acute) DEXA ordered by PCP Left shoulder pain (Acute) Actinic keratosis (Acute) Nonhealing presternal chest Pre-diabetes (Acute) IFG 112 + A1C 5.7% (2020); exists previously dating back to ~2013 per EHR problem list Hypomagnesemia (Acute) Atrophic vaginitis (Chronic) Vaginal moisturizer Replens; prevents recurrent UTIs Other and unspecified hyperlipidemia (Chronic 07/25/12) PCEq risk 14.8%; LDL baseline 129; declines statins, added simvastatin 11/2018 Hypothyroidism, unspecified (Chronic 07/25/12) Essential hypertension (Chronic 06/10/13) Medical History Asthma (02/19/14) intermittent; occurred with dust exposure mostly at work Cholesteatoma of left ear Chronic serous OM (otitis media) COVID-19 Asymptomatic Dysfunction of both eustachian tubes [facility] [facility] Elevated fasting blood sugar (12/10/13) Essential hypertension Hearing loss History of diverticulitis CT-confirmed 08/2018; also 09/2017 diverticulosis seen on colonoscopy Hypothyroidism Insomnia (02/24/16) Mixed conductive and sensorineural hearing loss of left ear with restricted hearing of right ear SARS-CoV-2 positive (~10/24/21) Sciatica (11/26/11) H/O: R 11/2011 Sensorineural hearing loss (SNHL) of right ear with restricted hearing of left ear Sensorineural hearing loss, unilateral (05/23/17) Left; sees Delfina Tinnitus of left ear Surgical History Colonoscopy - IV Sedation (01/09/13) Colonoscopy - MAC (08/30/17) History of hysterectomy History of tympanoplasty (~07/28/21) [facility] [place] Prolapse of bladder With mesh repair--reported by pt Family History (Updated 08/17/22 @ 10:29 by Natalya Rodrigez NP) Father , [place]; at age 57. Heart disease Mother , from gallbladder complications No problems noted. Social History Smoking/Tobacco Use Status: Former Tobacco Use Smoking risk assessment performed?: Yes Alcohol Intake: never Drug use: Never Substance use type: does not use Housing: house Do you feel safe at home: Yes Do you feel safe in your relationship?: Yes Exam Narrative Exam Narrative: General: Well-appearing in no acute distress speaking in complete sentences. Head: Normocephalic, atraumatic. Eye: Extraocular eye movements intact. No conjunctival injection. No scleral icterus. Ear, nose, mouth, throat: Grossly normal inspection. Normal voice, handling secretions normally. Neck: Trachea midline. Cardiovascular: Well-perfused distal extremities. Regular rate and rhythm. Respiratory: Nonlabored respiration.Clear lungs bilaterally. Gastrointestinal: Nondistended abdomen. Left lower quadrant tenderness. No rebound. No guarding. No rash to abdomen. Musculoskeletal: No edema. Moving all 4 extremities spontaneously. Skin: Normal for age and race, grossly normal temperature and turgor. No acute rash. Neurologic: Alert and appropriate, no apparent acute deficits. Psychiatric: Mood and manner are appropriate. Grooming and personal hygiene are appropriate. Course Vital Signs Vital signs: Vital Signs Temperature 36.8 C 11/24/22 23:25 Pulse 86 11/24/22 23:25 Respiratory Rate 17 11/24/22 23:25 Blood Pressure 199/86 H 11/24/22 23:25 Pulse Oximetry 98 11/24/22 23:25 Temperature 36.8 C 11/24/22 23:25 Temperature Source Temporal Artery Scan 11/24/22 23:25 Pulse 86 11/24/22 23:25 Respiratory Rate 17 11/24/22 23:25 Blood Pressure 199/86 H 11/24/22 23:25 Blood Pressure Position Sitting 11/24/22 23:25 Pulse Oximetry 98 11/24/22 23:25 Oxygen Delivery Method Room Air 11/24/22 23:25 Oxygen Flow Rate 0 11/24/22 23:25 Pain Level 6 11/24/22 23:25
--- NOTE | 2022-11-25 00:30 | DI.CT_ITS ---
Exam(s) CT ABDOMEN PELVIS W EXAM: CT ABDOMEN PELVIS W CLINICAL HISTORY: Left lower quadrant pain. TECHNIQUE: Imaging Protocol: Axial computed tomography images with coronal and sagittal reformatted images were created and reviewed CONTRAST MATERIAL: Intravenous: Omnipaque 350 Contrast volume:100 ml Oral: no COMPARISON: CT CT ABDOMEN PELVIS W from 09/20/2018 FINDINGS: ABDOMEN: Lung Bases: Normal where visualized. Liver: Mild fatty steatosis. No measurable mass. Gallbladder and biliary tract: Status post cholecystectomy. Stable dilatation of the common bile solitario t which tapers in the pancreatic head. No common duct stone. Pancreas: Normal density, no abnormal calcifications or inflammatory process. Spleen: Normal. Kidneys: Normal size, contour and axis. No radiodense stones or obstructive uropathy. No suspicious m asses seen. Adrenal glands: No masses seen. Abdominal Aorta: Abdominal portion non-dilated. Soft tissues: Unremarkable. PELVIS: Bladder: No gross wall thickening. No calculi.No focal mass. Bowel: No obstruction. Diverticulosis throughout the colon. Prominent diverticula noted in the sigm oid with marked inflammation around the junction of the descending and sigmoid colon the majority of the inflammation is anterior and inferior to the colon in the findings could represent diverticulitis versus epiploic appendagitis. Appendix normal. Peritoneal cavity: Trace fluid. No abscess. No free air. Bones: Unremarkable for age. Reproductive organs: Status post hysterectomy. Lymph nodes: Unremarkable. Impression: Diverticulitis versus epiploic appendagitis at the junction of descending and sigmoid colon. RADIATION DOSE DELIVERED: 826.1mGy.cm Total DLP DATA REPOSITORY: All CT scans at this facility are submitted to the National Radiology Data Registry (NRDR) Dose Index Registry (DIR) with the [employer] ([employer]). RADIATION OPTIMIZATION: All CT scans at this facility use at least one of these dose optimization te chniques: automated exposure control; mA and/or kV adjustment per patient size (includes targeted exa ms where dose is matched to clinical indication); or iterative reconstruction.
[2022-11-25 01:16] LABS: Abs Immature Grans 0.05 10^3/uL (0.0-0.06); Absolute Basophil Count 0.03 10^3/uL (0.0-0.2); Absolute Eosinophil Count 0.31 10^3/uL (0.0-0.7); Absolute Lymphocyte Count 2.17 10^3/uL (1.2-3.4); Absolute Monocyte Count 1.13 10^3/uL (0.1-0.8); Basophils % 0.3; Eosinophils % 2.7; HCT 39.3 % (36.0-46.0); HGB 13.9 g/dL (11.2-15.7); Immature Grans % 0.4; Lymphocytes % 18.7; MCH 31.3 pg (27.0-33.0); MCHC 35.4 % (32.0-36.0); MCV 89 fL (80-95); MPV 10.7 fL (8.0-11.0); Monocytes % 9.7; Neutrophils % 68.2; Platelet Count 349 10^3/uL (130-400); RBC 4.44 10^6/uL (3.93-5.22); RDW 11.9 % (11.7-14.6); RDW-SD 38.3 fL; WBC 11.63 10^3/uL (4.4-10.8)
[2022-11-25 01:18] LABS: Absolute Neutrophil Count 7.93 10^3/uL (1.2-6.7)
[2022-11-25 01:32] LABS: ALT 35 U/L (14-59); AST 23 U/L (15-37); Albumin 3.8 g/dL (3.4-5.0); Alkaline Phosphatase 78 U/L (46-116); Anion Gap 9.9 mmol/L (3-11); BUN 9 mg/dL (7-18); Bilirubin, Total 0.7 mg/dL (0.2-1.0); CO2 28.1 mmol/L (21.0-32.0); CREATININE 0.6 mg/dL (0.55-1.02); Calcium 9.3 mg/dL (8.5-10.1); Chloride 92 mmol/L (98-107); Estimated GFR 91.25 (mL/min/1.73m2); Glucose 120 mg/dL (74-106); Potassium 3.6 mmol/L (3.5-5.1); Sodium 130 mmol/L (136-145); Total Protein 7.9 g/dL (6.4-8.2)
[2022-11-25 01:51] LABS: Bilirubin Negative (Negative); Blood Trace-intact (Negative); Clarity Sl Cloudy (Clear); Glucose Negative (Negative); Ketones 40 mg/dL (Negative); Leukocyte Esterase Small (Negative); Nitrite Positive (Negative); Specific Gravity 1.015 (1.005-1.025); Urobilinogen 0.2 mg/dL (Up to 0.2); pH 7.5 (5-8)
[2022-11-25 02:11] LABS: Bacteria Few HPF (Negative); C & S Indicated? Yes; Crystals Few Amorphous HPF (Negative); Epithelial Cells Few HPF (Negative); Mucus Negative (Negative); RBC 0-2 HPF (0-2)
[2022-11-25] MEDS: fentaNYL 100 MCG/2 ML VIAL 50 MCG IVP (02:29)
[2022-11-25] MEDS: Omnipaque 350 MG/ML 100 ML BTL IJ (02:49)
[2022-11-25] MEDS: Normal Saline - Diluent 50 ML VIAL IJ (02:50)
--- NOTE | 2022-11-25 02:57 | DI.VRAD_ITS ---
PROCEDURE INFORMATION: Exam: CT Abdomen And Pelvis With Contrast Exam date and time: 11/25/2022 2:39 AM Age: 77 years old Clinical indication: Other: Llq pain TECHNIQUE: Imaging protocol: Computed tomography of the abdomen and pelvis with contrast. Radiation optimization: All CT scans at this facility use at least one of these dose optimization techniques: automated exposure control; mA and/or kV adjustment per patient size (includes targeted exams where dose is matched to clinical indication); or iterative reconstruction. Contrast material: OMNIPAQUE 350; Contrast volume: 100 ml; Contrast route: INTRAVENOUS (IV); COMPARISON: CT ABDOMEN PELVIS W 09/20/2018 8:46 PM FINDINGS: Liver: Hepatic steatosis. Gallbladder and bile ducts: Status post cholecystectomy. Pancreas: Normal. No ductal dilation. Spleen: Normal. No splenomegaly. Adrenal glands: Normal. No mass. Kidneys and ureters: Normal. No hydronephrosis. Stomach and bowel: Colonic diverticulosis. Epiploic appendagitis versus acute diverticulitis of the sigmoid colon. Appendix: No evidence of appendicitis. Intraperitoneal space: Unremarkable. No free air. No significant fluid collection. Vasculature: Unremarkable. No abdominal aortic aneurysm. Lymph nodes: Unremarkable. No enlarged lymph nodes. Urinary bladder: Unremarkable as visualized. Reproductive: Status post hysterectomy. Bones/joints: Unremarkable. No acute fracture. Soft tissues: Unremarkable. IMPRESSION: Epiploic appendagitis versus acute diverticulitis of the sigmoid colon. Dictated and Authenticated by: Roni Carlin MD. Ordering:MAGGY Villela MD
--- NOTE | 2022-11-25 03:47 | NUR.NOTE ---
Pt placed on referral list for a primary care F/U for Diverticulitis within [address] Mari
[2022-11-25] MEDS: Acetaminophen 500 MG TAB 1000 MG PO (04:26)
[2022-11-25] MEDS: Cephalexin 250 MG CAP PO (04:27)
[2022-11-25] MEDS: Amoxicillin 875/Clav. 125 TAB PO (04:27)
[2022-11-25 04:34] VITALS: BP 172/88; PULSE 87; RESP 15; TEMP 36.6; O2SAT 100
--- NOTE | 2022-11-26 12:10 | PDOC.CMPRO ---
Date of service: 11/26/22 Time of Service: 12:10 Care Management Progress Note Progress Note Text Progress Note Text: CM faxed referral to [facility], requesting ED follow up within one week. KERRY to contact pt directly to schedule f/u.
== END 2022-11-25 04:35 | disposition home or self-care (01) ==
PROVIDERS: Emergency Provider Emergency Medicine; PCP Nurse Practitioner Adult Health
DX: R10.814 Left lower quadrant abdominal tenderness; K57.32 Diverticulitis of large intestine without perforation or abscess without bleeding; R82.71 Bacteriuria; Z87.19 Personal history of other diseases of the digestive system; I10 Essential (primary) hypertension
CPT/HCPCS: 80053; 96374; 99285; 74177; 81003; 81015; 85025; 87086; 99284; J3010; J3490

== ENCOUNTER 2022-12-21 02:42 | Outpatient (CLI) | payer MEDICARE, OTHER, SELFPAY ==
[2022-12-21 08:29] LABS: Hemoglobin A1C 5.9 % (<5.7)
[2022-12-21 08:40] LABS: ALT 37 U/L (14-59); AST 29 U/L (15-37); Alkaline Phosphatase 85 U/L (46-116); Anion Gap 9.4 mmol/L (3-11); BUN 9 mg/dL (7-18); Bilirubin, Total 0.5 mg/dL (0.2-1.0); CO2 30.6 mmol/L (21.0-32.0); CREATININE 0.7 mg/dL (0.55-1.02); Calcium 9.5 mg/dL (8.5-10.1); Calculated LDL 62 mg/dL (<100); Chloride 95 mmol/L (98-107); Cholesterol 132 mg/dL (<200); Estimated GFR 87.92 (mL/min/1.73m2); Glucose 108 mg/dL (74-106); HDL Cholesterol 55 mg/dL (40-60); Magnesium 1.5 mg/dL (1.8-2.4); Potassium 3.1 mmol/L (3.5-5.1); Sodium 135 mmol/L (136-145); TSH (W/Ref FT4) 0.04 uIU/mL (0.36-3.74); Total Protein 8.2 g/dL (6.4-8.2); Triglyceride 79 mg/dL (<150)
[2022-12-21 08:57] LABS: FREE T4 1.71 ng/dL (0.76-1.46)
== END 2022-12-21 02:43 | disposition home or self-care (01) ==
LOC: LBO 02:42
PROVIDERS: PCP Nurse Practitioner Adult Health; Referring Provider Nurse Practitioner Adult Health; Visit Provider Nurse Practitioner Adult Health
DX: I10 Essential (primary) hypertension (principal); E03.9 Hypothyroidism, unspecified; R73.03 Prediabetes; E78.5 Hyperlipidemia, unspecified; E83.42 Hypomagnesemia
CPT/HCPCS: 36415; 80053; 80061; 83036; 83735; 84439; 84443

== ENCOUNTER → 2023-01-16 09:39 | Outpatient (BNVA) | payer MEDICARE, OTHER, SELFPAY | PROVIDERS: PCP Nurse Practitioner Adult Health; Referring Provider Nurse Practitioner Adult Health; Visit Provider Student in an Organized Health Care Education/Training Program | DX: M75.102 Unspecified rotator cuff tear or rupture of left shoulder, not specified as traumatic (principal) | CPT/HCPCS: 20610; 99203; 99213; J1030 ==

== ENCOUNTER 2023-02-04 04:49 | Outpatient (CLI) | payer MEDICARE, OTHER, SELFPAY ==
[2023-02-04 15:49] LABS: Anion Gap 5.4 mmol/L (3-11); BUN 7 mg/dL (7-18); CO2 29.6 mmol/L (21.0-32.0); CREATININE 0.7 mg/dL (0.55-1.02); Calcium 10.3 mg/dL (8.5-10.1); Chloride 102 mmol/L (98-107); Estimated GFR 87.92 (mL/min/1.73m2); Glucose 99 mg/dL (74-106); Magnesium 1.9 mg/dL (1.8-2.4); Sodium 137 mmol/L (136-145); TSH 0.03 uIU/mL (0.36-3.74)
== END 2023-02-04 04:50 | disposition home or self-care (01) ==
LOC: LBO 04:49
PROVIDERS: Absent Provider Nurse Practitioner Adult Health; PCP Nurse Practitioner Adult Health; Referring Provider Nurse Practitioner Adult Health; Visit Provider Nurse Practitioner Adult Health
DX: E83.42 Hypomagnesemia; I10 Essential (primary) hypertension
CPT/HCPCS: 36415; 80048; 83735; 84439; 84443

== ENCOUNTER → 2023-03-20 10:39 | Outpatient (BNVA) | payer MEDICARE, OTHER, SELFPAY | PROVIDERS: PCP Nurse Practitioner Adult Health; Referring Provider Nurse Practitioner Adult Health; Visit Provider Student in an Organized Health Care Education/Training Program | DX: M19.012 Primary osteoarthritis, left shoulder (principal); M75.102 Unspecified rotator cuff tear or rupture of left shoulder, not specified as traumatic | CPT/HCPCS: 99213 ==

== ENCOUNTER 2023-04-18 01:01 | Outpatient (CLI) | payer MEDICARE, OTHER, SELFPAY ==
[2023-04-18 14:20] LABS: Anion Gap 6.1 mmol/L (3-11); BUN 11 mg/dL (7-18); CO2 31.9 mmol/L (21.0-32.0); CREATININE 0.7 mg/dL (0.55-1.02); Calcium 9.2 mg/dL (8.5-10.1); Chloride 101 mmol/L (98-107); Estimated GFR 87.37 (mL/min/1.73m2); Glucose 92 mg/dL (74-106); Magnesium 1.7 mg/dL (1.8-2.4); Potassium 3.5 mmol/L (3.5-5.1); Sodium 139 mmol/L (136-145)
== END 2023-04-18 01:02 | disposition home or self-care (01) ==
LOC: LBO 01:02
PROVIDERS: PCP Nurse Practitioner Adult Health; Referring Provider Nurse Practitioner Adult Health; Visit Provider Nurse Practitioner Adult Health
DX: E03.9 Hypothyroidism, unspecified (principal); E83.42 Hypomagnesemia; E87.6 Hypokalemia; I10 Essential (primary) hypertension; Z51.81 Encounter for therapeutic drug level monitoring
CPT/HCPCS: 36415; 80048; 83735; 84443

== ENCOUNTER 2024-02-24 03:03 | Outpatient (CLI) | payer MEDICARE, OTHER, SELFPAY ==
[2024-02-24 10:19] LABS: Anion Gap 9.9 mmol/L (3-11); BUN 11 mg/dL (7-18); CO2 29.1 mmol/L (21.0-32.0); CREATININE 0.7 mg/dL (0.55-1.02); Calcium 9.8 mg/dL (8.5-10.1); Calculated LDL 80 mg/dL (<100); Chloride 104 mmol/L (98-107); Cholesterol 167 mg/dL (<200); Estimated GFR 87.37 (mL/min/1.73m2); Glucose 110 mg/dL (74-106); HDL Cholesterol 75 mg/dL (40-60); Magnesium 2.2 mg/dL (1.8-2.4); Potassium 3.7 mmol/L (3.5-5.1); Sodium 143 mmol/L (136-145); TSH (W/Ref FT4) 2.44 uIU/mL (0.36-3.74); Triglyceride 63 mg/dL (<150); Vitamin D 25 Total 47.5 ng/mL (30-100)
[2024-02-24 11:07] LABS: Hemoglobin A1C 5.5 % (<5.7)
== END 2024-02-24 03:04 | disposition home or self-care (01) ==
LOC: LBO 03:03
PROVIDERS: Absent Provider Nurse Practitioner Adult Health; PCP Nurse Practitioner Adult Health; Referring Provider Nurse Practitioner Adult Health; Visit Provider Nurse Practitioner Adult Health
DX: M85.80 Other specified disorders of bone density and structure, unspecified site (principal); E03.9 Hypothyroidism, unspecified; I10 Essential (primary) hypertension; E78.5 Hyperlipidemia, unspecified; R73.03 Prediabetes; E83.42 Hypomagnesemia
CPT/HCPCS: 36415; 80048; 80061; 82306; 83036; 83735; 84443

== ENCOUNTER 2024-04-10 14:36 | Outpatient (REF) | payer MEDICARE, OTHER, SELFPAY | END 2024-04-10 14:37 | disposition home or self-care (01) | LOC: LBN 14:36 | PROVIDERS: PCP Nurse Practitioner Adult Health; Visit Provider Nurse Practitioner Adult Health | DX: R39.15 Urgency of urination (principal); R82.998 Other abnormal findings in urine; I10 Essential (primary) hypertension; E78.5 Hyperlipidemia, unspecified; R73.03 Prediabetes; E03.9 Hypothyroidism, unspecified; M85.80 Other specified disorders of bone density and structure, unspecified site; E83.42 Hypomagnesemia; N95.2 Postmenopausal atrophic vaginitis; N39.0 Urinary tract infection, site not specified | CPT/HCPCS: 87086 ==

== ENCOUNTER 2024-09-29 02:25 | Outpatient (CLI) | payer MEDICARE, OTHER, SELFPAY ==
[2024-09-29 13:44] LABS: HCT 45.6 % (36.0-46.0); HGB 15.7 g/dL (11.2-15.7); MCH 31.3 pg (27.0-33.0); MCHC 34.4 % (32.0-36.0); MCV 91 fL (80-95); MPV 9.9 fL (8.0-11.0); Platelet Count 339 10^3/uL (130-400); RBC 5.01 10^6/uL (3.93-5.22); RDW-SD 39.8 fL; WBC 9.77 10^3/uL (4.4-10.8)
[2024-09-29 14:27] LABS: ALT 30 U/L (14-59); AST 26 U/L (15-37); Albumin 4.2 g/dL (3.4-5.0); Alkaline Phosphatase 108 U/L (46-116); Anion Gap 6.1 mmol/L (3-11); BUN 14 mg/dL (7-18); Bilirubin, Total 0.4 mg/dL (0.2-1.0); CO2 31.9 mmol/L (21.0-32.0); CREATININE 0.9 mg/dL (0.55-1.02); Calcium 9.3 mg/dL (8.5-10.1); Chloride 101 mmol/L (98-107); Estimated GFR 64.23 (mL/min/1.73m2); Glucose 99 mg/dL (74-106); Potassium 3.4 mmol/L (3.5-5.1); Sodium 139 mmol/L (136-145); TSH (W/Ref FT4) 4.64 uIU/mL (0.36-3.74); Total Protein 8.5 g/dL (6.4-8.2); Vitamin B12 581 pg/mL (193-986)
[2024-09-29 14:29] LABS: Folate > 20.0 ng/mL (8.6-20.0)
[2024-09-29 14:46] LABS: FREE T4 1.12 ng/dL (0.76-1.46)
== END 2024-09-29 02:26 | disposition home or self-care (01) ==
LOC: LBO 02:25
PROVIDERS: PCP Nurse Practitioner Adult Health; Referring Provider Nurse Practitioner Adult Health; Visit Provider Nurse Practitioner Adult Health
DX: R53.83 Other fatigue (principal)
CPT/HCPCS: 36415; 80053; 85027; 82607; 82746; 84439; 84443

== ENCOUNTER 2024-12-24 15:15 | Outpatient (REF) | payer MEDICARE, OTHER, SELFPAY | END 2024-12-24 15:16 | disposition home or self-care (01) | LOC: NCHCN 15:15 | PROVIDERS: PCP Nurse Practitioner Adult Health; Visit Provider Physician Assistant | DX: N39.0 Urinary tract infection, site not specified (principal) | CPT/HCPCS: 87077; 87086; 87186 ==

== ENCOUNTER 2024-12-30 17:45 | Outpatient (REF) | payer MEDICARE, OTHER, SELFPAY | END 2024-12-30 17:46 | disposition home or self-care (01) | LOC: LBN 17:45 | PROVIDERS: PCP Nurse Practitioner Adult Health; Visit Provider Nurse Practitioner Adult Health | DX: N39.0 Urinary tract infection, site not specified (principal); B96.20 Unspecified Escherichia coli [E. coli] as the cause of diseases classified elsewhere | CPT/HCPCS: 87077; 87086; 87186 ==

== ENCOUNTER 2025-03-23 00:57 | Outpatient (CLI) | payer MEDICARE, OTHER, SELFPAY ==
[2025-03-23 08:56] LABS: Magnesium 1.8 mg/dL (1.6-2.6)
[2025-03-23 08:57] LABS: Anion Gap 10.6 mmol/L (3-11); BUN 8 mg/dL (9-23); CO2 27.4 mmol/L (20.0-31.0); Calcium 9.7 mg/dL (8.3-10.6); Chloride 102 mmol/L (98-107); Cholesterol 138 mg/dL (<200); Glucose 105 mg/dL (74-106); HDL Cholesterol 53 mg/dL (>40); Potassium 3.6 mmol/L (3.5-5.1); Sodium 140 mmol/L (136-145)
[2025-03-23 08:58] LABS: TSH (W/Ref FT4) 0.41 uIU/mL (0.55-4.78)
== END 2025-03-23 00:58 | disposition home or self-care (01) ==
LOC: LBO 00:57
PROVIDERS: Absent Provider Nurse Practitioner Adult Health; PCP Nurse Practitioner Adult Health; Referring Provider Nurse Practitioner Adult Health; Visit Provider Nurse Practitioner Adult Health
DX: E78.5 Hyperlipidemia, unspecified (principal); E03.9 Hypothyroidism, unspecified; I10 Essential (primary) hypertension; M85.80 Other specified disorders of bone density and structure, unspecified site; E83.42 Hypomagnesemia; Z51.81 Encounter for therapeutic drug level monitoring
CPT/HCPCS: 36415; 80048; 80061; 83735; 84439; 84443